=== PATIENT | female | born 1960 | race Caucasian/White ===

== ENCOUNTER → 2025-03-03 13:02 | Outpatient (BNVA) | payer MEDICARE, SELFPAY | PROVIDERS: PCP Family Medicine; Referring Provider Family Medicine; Visit Provider Physician Assistant Surgical | DX: J45.909 Unspecified asthma, uncomplicated (principal); Z77.120 Contact with and (suspected) exposure to mold (toxic); K21.9 Gastro-esophageal reflux disease without esophagitis | CPT/HCPCS: 99205 ==

== ENCOUNTER → 2025-09-01 14:20 | Outpatient (BNVA) | payer MEDICARE, SELFPAY | PROVIDERS: PCP Family Medicine; Referring Provider Family Medicine; Visit Provider Physician Assistant Surgical | DX: J45.909 Unspecified asthma, uncomplicated (principal); K21.9 Gastro-esophageal reflux disease without esophagitis | CPT/HCPCS: 99214 ==